=== PATIENT | male | born 1980 | race Caucasian/White ===

== ENCOUNTER 2020-06-28 09:33 | Outpatient (CLI) | payer SELFPAY ==
[2020-07-01 14:15] LABS: Patient Race White; SARS-CoV-2 RNA Undetected (Undetected); SARS-CoV-2 Specimen Source Nasal
== END 2020-06-28 09:53 ==
PROVIDERS: PCP Emergency Medicine; Visit Provider Nurse Practitioner Family
DX: Z11.59 Encounter for screening for other viral diseases (principal); Z20.828 Contact with and (suspected) exposure to other viral communicable diseases
CPT/HCPCS: U0003

== ENCOUNTER 2020-07-17 04:00 | Outpatient (CLI) | payer SELFPAY ==
[2020-07-20 19:17] LABS: COVID-19 RT-PCR Result NEGATIVE (Negative)
== END 2020-07-17 04:20 ==
PROVIDERS: PCP Emergency Medicine; Visit Provider Emergency Medicine
DX: Z11.59 Encounter for screening for other viral diseases (principal)
CPT/HCPCS: U0003

== ENCOUNTER 2021-07-05 18:22 | Outpatient (REF) | payer SELFPAY ==
[2021-07-07 12:43] LABS: COVID-19 RT-PCR UVMMC Result Negative (Negative)
== END 2021-07-05 18:23 | disposition home or self-care (01) ==
LOC: LBN 18:22
PROVIDERS: PCP Emergency Medicine; Visit Provider Nurse Practitioner Family
DX: Z20.822 Contact with and (suspected) exposure to COVID-19 (principal); J02.9 Acute pharyngitis, unspecified
CPT/HCPCS: U0003